=== PATIENT | female | born 1980 | race Two or more races ===

== ENCOUNTER 2017-04-25 15:45 | Emergency (ER) | payer MEDICARE, MEDICAID ==
[~2017-04-25] VITALS: Ht 157.5 cm; Wt 64.2 kg
[2017-04-25] MEDS ORDERED: ONDANSETRON ODT 4 MG PO ONE (16:30)
[2017-04-25 17:27] LABS: HEMOGLOBIN 11.7 g/dL (11.7-16.4); WHITE BLOOD COUNT 10.7 x10^3/uL (3.4-10)
[2017-04-25 17:37] LABS: ASPARTATE AMINO TRANSFERASE 16 U/L (15-37); BLOOD UREA NITROGEN 10 mg/dL (7-18)
[2017-04-25] MEDS ORDERED: SODIUM CHLORIDE 0.9% 1,000ML IVBOLUS ONE (19:00)
[2017-04-25] MEDS ORDERED: SODIUM CHLORIDE FLUSH 10ML SYR IVF ONE (19:00)
[2017-04-25] MEDS ORDERED: POTASSIUM CHLORIDE 20 MEQ TAB.ER.PRT PO ONE (19:00)
[2017-04-25] MEDS ORDERED: ONDANSETRON ODT 4 MG ONE (19:14)
[2017-04-25] MEDS ORDERED: POTASSIUM CHLORIDE 20 MEQ TAB.ER.PRT ONE (19:14)
[2017-04-25] MEDS ORDERED: PROMETHAZINE 25 MG/ML, 1ML ONE (19:51)
[2017-04-25] MEDS ORDERED: PROMETHAZINE 25 MG/ML, 1ML IM ONE (20:00)
[2017-04-25] MEDS ORDERED: DIAZEPAM 5 MG TABLET PO ONE (20:30)
[2017-04-25] MEDS ORDERED: DIAZEPAM 5 MG TABLET ONE (20:36)
[2017-04-25 21:00] VITALS: BP 194/89
[2017-04-26] MEDS ORDERED: OMEG1CAP23 PO (13:32)
[2017-04-26] MEDS ORDERED: INSU100C SQ-INSULIN (13:32)
[2017-04-26] MEDS ORDERED: SIMV40TA3 PO (13:32)
[2017-04-26] MEDS ORDERED: NPH,100V5 SQ ×2 (13:32)
[2017-04-26] MEDS ORDERED: HYDR-3342 PO (13:32)
[2017-04-26] MEDS ORDERED: ASPI-621 PO (13:32)
== END 2017-04-25 21:56 | disposition home or self-care (01) ==
LOC: ED 21:50
DX: R10.13 Epigastric pain (principal); R11.2 Nausea with vomiting, unspecified; E87.6 Hypokalemia; E11.22 Type 2 diabetes mellitus with diabetic chronic kidney disease; I12.9 Hypertensive chronic kidney disease with stage 1 through stage 4 chronic kidney disease, or unspecified chronic kidney disease; N18.3 Chronic kidney disease, stage 3 (moderate); Z79.4 Long term (current) use of insulin; Z90.710 Acquired absence of both cervix and uterus; Z99.2 Dependence on renal dialysis; Z79.82 Long term (current) use of aspirin
CPT/HCPCS: 36415; 74020; 76700; 80053; 81001; 83690; 84703; 85025; 87086; 96372; 99285; J2550; Q0162

== ENCOUNTER 2017-04-26 12:18 | Emergency (ER) | payer MEDICARE, MEDICAID ==
[~2017-04-26] VITALS: Ht 157.5 cm; Wt 64.4 kg
[2017-04-26] MEDS ORDERED: SODIUM CHLORIDE 0.9% 1,000ML IVBOLUS ONE (13:00)
[2017-04-26] MEDS ORDERED: SODIUM CHLORIDE FLUSH 10ML SYR IVF ONE (13:00)
[2017-04-26 13:32] LABS: ABG COLLECTION SITE RIGHT RADIAL; COLLATERAL CIRCULATION TESTING NORMAL
[2017-04-26] MEDS ORDERED: NPH,100V5 SQ ×2 (13:32)
[2017-04-26] MEDS ORDERED: HYDR-3342 PO (13:32)
[2017-04-26] MEDS ORDERED: SIMV40TA3 PO (13:32)
[2017-04-26] MEDS ORDERED: ASPI-621 PO (13:32)
[2017-04-26] MEDS ORDERED: INSU100C SQ-INSULIN (13:32)
[2017-04-26] MEDS ORDERED: OMEG1CAP23 PO (13:32)
[2017-04-26 13:35] LABS: HEMATOCRIT 30.4 % (34.6-47.8); HEMOGLOBIN 10.2 g/dL (11.7-16.4); WHITE BLOOD COUNT 7.2 x10^3/uL (3.4-10)
[2017-04-26 13:44] LABS: ASPARTATE AMINO TRANSFERASE 16 U/L (15-37); BLOOD UREA NITROGEN 16 mg/dL (7-18)
[2017-04-26] MEDS ORDERED: POTASSIUM CHLORIDE 20 MEQ TAB.ER.PRT PO ONE (14:30)
[2017-04-26] MEDS ORDERED: POTASSIUM CHLORIDE 40 MEQ in SODIUM CHLORIDE 0.9% 500 ML IV ONE (14:30)
[2017-04-26] MEDS ORDERED: POTASSIUM CHLORIDE 20 MEQ TAB.ER.PRT ONE (14:48)
[2017-04-26 17:11] LABS: BLOOD UREA NITROGEN 17 mg/dL (7-18)
[2017-04-26 17:52] VITALS: BP 192/91
== END 2017-04-26 18:05 | disposition home or self-care (01) ==
LOC: ED 13:04
DX: R55 Syncope and collapse (principal); E10.65 Type 1 diabetes mellitus with hyperglycemia; I10 Essential (primary) hypertension; Z90.710 Acquired absence of both cervix and uterus
CPT/HCPCS: 36415; 36600; 80048; 80053; 81001; 82010; 82040; 82803; 82962; 84703; 85025; 87086; 93005; 96360; 96361; 99285; J3480; J7030; J7040